=== PATIENT | female | born 1965 | race Caucasian/White ===

== ENCOUNTER 2019-04-10 11:34 | Inpatient (IN) ==
[2019-04-10] MEDS ORDERED: 0.9 % Sodium Chloride 1,000 ML IVC ONE (12:06)
[2019-04-10] MEDS ORDERED: Ondansetron 4 MG/2 ML VIAL IVP PRN (12:07)
[2019-04-10] MEDS ORDERED: *HR* FentaNYL (PF) 100 MCG/2 ML VIAL IVP ONE ×2 (12:07→13:56)
[2019-04-10] MEDS ORDERED: Isovue-370 500 ML BOTTLE IVP ONE (12:08)
[2019-04-10 12:35] LABS: Basophils % 0.3 %; Eosinophils # 0.2 K/mcL (0.0-0.6); Eosinophils % 1.5 %; Hematocrit 27.2 % (35.3-44.9); Immature Granulocytes % 0.6 % (0-4); Lymphocytes # 1.1 K/mcL (0.6-4.6); Lymphocytes % 7.9 %; Mean Corpuscular HGB Conc 29.4 g/dL (31.6-35.5); Mean Corpuscular Hemoglobin 21.4 pg (28.0-33.3); Mean Corpuscular Volume 72.9 fL (83.0-100.0); Mean Platelet Volume 8.4 fL (9.4-12.4); Monocytes # 1.5 K/mcL (0.0-1.3); Monocytes % 11.2 %; Neutrophils # 10.8 K/mcL (1.6-8.9); Platelet Count 540 K/mcL (140-400); Red Blood Count 3.73 M/mcL (3.82-4.97); Segmented Neutrophils % 78.5 %
[2019-04-10 12:42] LABS: INR 1.6; Prothrombin Time 18.1 Seconds (9.4-12.1)
[2019-04-10 12:53] LABS: Alanine Aminotransferase 14 Units/L (7-52); Albumin 2.6 g/dL (3.5-5.7); Albumin/Globulin Ratio 0.6 (1.1-2.2); Alkaline Phosphatase 227 Units/L (34-104); Aspartate Amino Transferase 12 Units/L (13-39); BUN/Creatinine Ratio 20 (6-26); Bilirubin,Total 0.4 mg/dL (0.3-1.0); Blood Urea Nitrogen 20 mg/dL (6-20); Calcium 8.4 mg/dL (8.6-10.3); Carbon Dioxide 25 mEq/L (23-29); Chloride 101 mEq/L (98-107); Globulin 4.7 g/dL (2.4-3.5); Glucose 118 mg/dL (70-105); Lipase 11 Units/L (11-82); Osmolality,Calculated 288 (280-300); Potassium 3.2 mEq/L (3.5-5.1); Sodium 137 mEq/L (136-145); Total Protein 7.3 g/dL (6.4-8.9); White Blood Count 13.7 K/mcL (4.3-11.1); eGFR For African Americans > 60 (> 60); eGFR For Non-African Americans 57 (> 60)
[2019-04-10 13:51] LABS: Bilirubin,Urine Small (Negative); Blood,Urine Large (Negative); Clarity,Urine Turbid (Clear); Color,Urine Yellow (Yellow); Glucose,Urine (UA) Normal (Normal); Ketones,Urine Negative (Negative); Leukocyte Esterase,Urine Large (Negative); Nitrite,Urine Negative (Negative); PH,Urine 5.5 pH Units (5.0-8.0); Protein,Urine 100 mg/dL (Neg-Trace); Specific Gravity,Urine 1.028 (1.010-1.025); Urobilinogen,Urine Normal (Normal)
[2019-04-10 13:56] LABS: Squamous Epithelial Cell,Urine Many per lpf (None-Few); WBC,Urine TNTC per hpf (0-3)
[2019-04-10 14:15] LABS: RBC,Urine 15-30 per hpf (0-3)
[2019-04-10 14:16] LABS: Bacteria,Urine Moderate per hpf (None-Few)
[2019-04-10] MEDS ORDERED: Piperacillin/Tazobactam 3.375 GM in 0.9 % Sodium Chloride Mini Bag 100 ML IVPB ONE (15:06)
[2019-04-10] MEDS ORDERED: *HR* OxyCODONE Immed Rel 5 MG TABLET PO PRN (16:09)
[2019-04-10] MEDS ORDERED: Naloxone 0.4 MG/ML INJ IVP PRN (16:09)
[2019-04-10] MEDS ORDERED: Morphine Sulfate 2 MG/ML SYRINGE IVP ONE (18:02)
[2019-04-10] MEDS: Nicotine 14 MG PATCH.TD24 TD SCH (18:17)
[2019-04-10] MEDS ORDERED: Ringers Solution, Lactated 1,000 ML IVC SCH (20:30)
[2019-04-10] MEDS: Nystatin SUSP 5 ML UD.LIQ PO SCH (21:00)
[2019-04-10] MEDS ORDERED: Acetaminophen IV 1,000 MG/100 ML INFUS..BTL IVPB ONE (22:51)
[2019-04-10] MEDS ORDERED: 0.9 % Sodium Chloride 500 ML IVC ONE (22:53)
[2019-04-11] MEDS: 0.9 % Sodium Chloride 1,000 ML IVC SCH ×3 (01:00→22:29)
[2019-04-11 06:58] LABS: INR 1.7
[2019-04-11 07:09] LABS: Hematocrit 24.1 % (35.3-44.9); Hemoglobin 7.4 g/dL (11.5-15.4); Mean Corpuscular HGB Conc 30.7 g/dL (31.6-35.5); Mean Corpuscular Hemoglobin 21.4 pg (28.0-33.3); Mean Corpuscular Volume 69.7 fL (83.0-100.0); Mean Platelet Volume 8.8 fL (9.4-12.4); Platelet Count 521 K/mcL (140-400); Red Blood Count 3.46 M/mcL (3.82-4.97); Red Cell Distribution Width 18.3 % (11.5-14.5)
[2019-04-11 07:21] LABS: White Blood Count 20.9 K/mcL (4.3-11.1)
[2019-04-11 07:36] LABS: BUN/Creatinine Ratio 19 (6-26); Blood Urea Nitrogen 18 mg/dL (6-20); Calcium 7.5 mg/dL (8.6-10.3); Carbon Dioxide 19 mEq/L (23-29); Chloride 104 mEq/L (98-107); Glucose 42 mg/dL (70-105); Magnesium 1.6 mg/dL (1.6-2.6); Osmolality,Calculated 289 (280-300); Potassium 3.2 mEq/L (3.5-5.1); Sodium 140 mEq/L (136-145); eGFR For African Americans > 60 (> 60); eGFR For Non-African Americans > 60 (> 60)
[2019-04-11 07:45] LABS: Albumin 2.1 g/dL (3.5-5.7); Albumin/Globulin Ratio 0.6 (1.1-2.2); Bilirubin,Direct 0.5 mg/dL (0.0-0.2); Bilirubin,Indirect 0.2 mg/dL (0.0-1.0); Bilirubin,Total 0.7 mg/dL (0.3-1.0); Globulin 3.8 g/dL (2.4-3.5); Total Protein 5.9 g/dL (6.4-8.9)
[2019-04-11 07:50] LABS: Folate 11.4 ng/mL (3.0-16.0)
[2019-04-11 08:10] LABS: Thyroid Stimulating Hormone 6.926 mcIU/mL (0.340-5.600)
[2019-04-11 08:13] LABS: Anisocytosis 1+ (Not Present); Lymphocytes # 0.6 K/mcL (0.6-4.6); Microcytosis Present (Not Present); Neutrophils # 18.6 K/mcL (1.6-8.9)
[2019-04-11 08:14] LABS: Hypochromasia Present (Not Present); Platelet Estimate Increased (Normal); Reactive Lymphocytes Present (Not Present)
[2019-04-11 08:17] LABS: Ferritin 291 ng/mL (10-120)
[2019-04-11 08:21] LABS: Iron < 10 mcg/dL (50-170); Transferrin 103 mg/dL (203-362)
[2019-04-11] MEDS: Nicotine 14 MG PATCH.TD24 TD SCH (08:21)
[2019-04-11] MEDS: *HR* HYDROmorphone 2 MG/ML SYRINGE IVP PRN ×2 (08:23→15:31)
[2019-04-11] MEDS: Piperacillin/Tazobactam 3.375 GM in 0.9 % Sodium Chloride Mini Bag 100 ML IVPB SCH ×3 (08:23→18:39)
[2019-04-11] MEDS ORDERED: 0.9 % Sodium Chloride 500 ML ONE (08:43)
[2019-04-11] MEDS ORDERED: *HR* Midazolam HCl 5 MG/5 ML VIAL IVP ONE (08:51)
[2019-04-11] MEDS ORDERED: *HR* FentaNYL (PF) 100 MCG/2 ML VIAL IVP ONE (08:51)
[2019-04-11] MEDS ORDERED: *HR* Midazolam HCl 2 MG/2 ML VIAL IVP ONE (09:30)
[2019-04-11 14:06] LABS: Hematocrit 29.8 % (35.3-44.9); Hemoglobin 8.5 g/dL (11.5-15.4)
[2019-04-11] MEDS: Nystatin SUSP 5 ML UD.LIQ PO SCH ×2 (15:30→19:25)
[2019-04-11] MEDS: Ondansetron 4 MG/2 ML VIAL IVP PRN (15:30)
[2019-04-12] MEDS: Piperacillin/Tazobactam 3.375 GM in 0.9 % Sodium Chloride Mini Bag 100 ML IVPB SCH ×4 (00:05→23:38)
[2019-04-12] MEDS: *HR* HYDROmorphone 2 MG/ML SYRINGE IVP PRN (00:06)
[2019-04-12 04:46] LABS: Basophils % 0.2 %; Eosinophils # 0.3 K/mcL (0.0-0.6); Eosinophils % 3.7 %; Hematocrit 22.4 % (35.3-44.9); Immature Granulocytes % 1.1 % (0-4); Lymphocytes # 0.9 K/mcL (0.6-4.6); Lymphocytes % 10.6 %; Mean Corpuscular HGB Conc 30.4 g/dL (31.6-35.5); Mean Corpuscular Hemoglobin 21.1 pg (28.0-33.3); Mean Corpuscular Volume 69.3 fL (83.0-100.0); Mean Platelet Volume 8.3 fL (9.4-12.4); Monocytes # 0.7 K/mcL (0.0-1.3); Monocytes % 8.4 %; Platelet Count 443 K/mcL (140-400); Red Blood Count 3.23 M/mcL (3.82-4.97); Red Cell Distribution Width 18.3 % (11.5-14.5)
[2019-04-12 04:59] LABS: Hemoglobin 6.8 g/dL (11.5-15.4); Neutrophils # 6.2 K/mcL (1.6-8.9); White Blood Count 8.1 K/mcL (4.3-11.1)
[2019-04-12 05:09] LABS: BUN/Creatinine Ratio 23 (6-26); Blood Urea Nitrogen 21 mg/dL (6-20); Calcium 7.1 mg/dL (8.6-10.3); Carbon Dioxide 20 mEq/L (23-29); Chloride 109 mEq/L (98-107); Glucose 99 mg/dL (70-105); Magnesium 1.8 mg/dL (1.6-2.6); Osmolality,Calculated 287 (280-300); Potassium 3.7 mEq/L (3.5-5.1); Sodium 137 mEq/L (136-145); eGFR For African Americans > 60 (> 60); eGFR For Non-African Americans > 60 (> 60)
[2019-04-12 05:47] LABS: Anisocytosis 1+ (Not Present); Microcytosis Present (Not Present); Platelet Estimate Normal (Normal)
[2019-04-12 05:48] LABS: Hypochromasia Present (Not Present)
[2019-04-12] MEDS ORDERED: Ringers Solution, Lactated 1,000 ML IVC ONE (08:17)
[2019-04-12] MEDS: 0.9 % Sodium Chloride 1,000 ML IVC SCH ×4 (08:39→17:33)
[2019-04-12] MEDS: Nicotine 14 MG PATCH.TD24 TD SCH (08:40)
[2019-04-12] MEDS: Nystatin SUSP 5 ML UD.LIQ PO SCH ×4 (08:42→21:03)
[2019-04-12] MEDS: Acetaminophen 325 MG TABLET PO PRN ×3 (08:45→23:39)
[2019-04-12 08:54] LABS: Basophils % 0.4 %; Eosinophils # 0.3 K/mcL (0.0-0.6); Eosinophils % 3.7 %; Hematocrit 22.3 % (35.3-44.9); Hemoglobin 6.7 g/dL (11.5-15.4); Immature Granulocytes % 1.1 % (0-4); Lymphocytes % 11.8 %; Mean Corpuscular Hemoglobin 21.5 pg (28.0-33.3); Mean Corpuscular Volume 71.7 fL (83.0-100.0); Mean Platelet Volume 8.6 fL (9.4-12.4); Monocytes # 0.8 K/mcL (0.0-1.3); Monocytes % 9.6 %; Neutrophils # 5.9 K/mcL (1.6-8.9); Platelet Count 412 K/mcL (140-400); Red Blood Count 3.11 M/mcL (3.82-4.97); Red Cell Distribution Width 18.3 % (11.5-14.5); Segmented Neutrophils % 73.4 %
[2019-04-12 09:53] LABS: Estimated Average Glucose 148 mg/dl
[2019-04-12] MEDS ORDERED: 0.9 % Sodium Chloride 250 ML IVC SCH (10:15)
[2019-04-12 15:57] LABS: Hematocrit 27.4 % (35.3-44.9)
[2019-04-12 15:59] LABS: Hemoglobin 8.4 g/dL (11.5-15.4)
[2019-04-13 04:56] LABS: Hematocrit 24.3 % (35.3-44.9); Hemoglobin 7.6 g/dL (11.5-15.4); Mean Corpuscular HGB Conc 31.3 g/dL (31.6-35.5); Mean Corpuscular Volume 70.2 fL (83.0-100.0); Mean Platelet Volume 8.8 fL (9.4-12.4); Nucleated Red Blood Cells 0.3 /100 WBC (0); Platelet Count 373 K/mcL (140-400); Red Blood Count 3.46 M/mcL (3.82-4.97); Red Cell Distribution Width 19.5 % (11.5-14.5); White Blood Count 6.8 K/mcL (4.3-11.1)
[2019-04-13 05:23] LABS: BUN/Creatinine Ratio 24 (6-26); Blood Urea Nitrogen 21 mg/dL (6-20); Calcium 7.4 mg/dL (8.6-10.3); Carbon Dioxide 19 mEq/L (23-29); Chloride 114 mEq/L (98-107); Glucose 103 mg/dL (70-105); Osmolality,Calculated 287 (280-300); Sodium 137 mEq/L (136-145); eGFR For African Americans > 60 (> 60); eGFR For Non-African Americans > 60 (> 60)
[2019-04-13] MEDS: 0.9 % Sodium Chloride 1,000 ML IVC SCH ×2 (05:28→17:02)
[2019-04-13 05:42] LABS: Eosinophils # 0.4 K/mcL (0.0-0.6); Lymphocytes # 1.6 K/mcL (0.6-4.6); Monocytes # 0.3 K/mcL (0.0-1.3); Neutrophils # 4.2 K/mcL (1.6-8.9)
[2019-04-13 05:43] LABS: Anisocytosis 1+ (Not Present); Hypochromasia Present (Not Present); Platelet Estimate Normal (Normal)
[2019-04-13 05:44] LABS: Microcytosis Present (Not Present)
[2019-04-13] MEDS: Nystatin SUSP 5 ML UD.LIQ PO SCH ×4 (09:01→21:51)
[2019-04-13] MEDS: Nicotine 14 MG PATCH.TD24 TD SCH (09:01)
[2019-04-13] MEDS: Piperacillin/Tazobactam 3.375 GM in 0.9 % Sodium Chloride Mini Bag 100 ML IVPB SCH ×2 (09:01→16:37)
[2019-04-13] MEDS: Ondansetron 4 MG/2 ML VIAL IVP PRN (10:39)
[2019-04-13 12:19] LABS: Hematocrit 25.2 % (35.3-44.9); Hemoglobin 7.8 g/dL (11.5-15.4)
[2019-04-13] MEDS ORDERED: *HR* OxyCODONE/APAP 5/325 TABLET PO PRN (15:14)
[2019-04-14] MEDS: Piperacillin/Tazobactam 3.375 GM in 0.9 % Sodium Chloride Mini Bag 100 ML IVPB SCH ×2 (00:02→08:27)
[2019-04-14] MEDS: Ondansetron 4 MG/2 ML VIAL IVP PRN (00:05)
[2019-04-14 04:56] LABS: Eosinophils # 0.2 K/mcL (0.0-0.6); Hematocrit 25.7 % (35.3-44.9); Hemoglobin 8.1 g/dL (11.5-15.4); Mean Corpuscular HGB Conc 31.5 g/dL (31.6-35.5); Mean Corpuscular Hemoglobin 22.3 pg (28.0-33.3); Mean Corpuscular Volume 70.8 fL (83.0-100.0); Mean Platelet Volume 8.7 fL (9.4-12.4); Nucleated Red Blood Cells 0.6 /100 WBC (0); Platelet Count 409 K/mcL (140-400); Red Blood Count 3.63 M/mcL (3.82-4.97); White Blood Count 8.7 K/mcL (4.3-11.1)
[2019-04-14 05:15] LABS: BUN/Creatinine Ratio 16 (6-26); Blood Urea Nitrogen 14 mg/dL (6-20); Calcium 7.2 mg/dL (8.6-10.3); Carbon Dioxide 22 mEq/L (23-29); Chloride 110 mEq/L (98-107); Glucose 98 mg/dL (70-105); Osmolality,Calculated 288 (280-300); Potassium 3.8 mEq/L (3.5-5.1); Sodium 139 mEq/L (136-145); eGFR For African Americans > 60 (> 60); eGFR For Non-African Americans > 60 (> 60)
[2019-04-14 05:39] LABS: Hypochromasia Present (Not Present); Lymphocytes # 2.1 K/mcL (0.6-4.6); Microcytosis Present (Not Present); Neutrophils # 5.9 K/mcL (1.6-8.9)
[2019-04-14 05:40] LABS: Anisocytosis 1+ (Not Present); Platelet Estimate Normal (Normal)
[2019-04-14] MEDS: Nystatin SUSP 5 ML UD.LIQ PO SCH (08:27)
[2019-04-14] MEDS: Nicotine 14 MG PATCH.TD24 TD SCH (08:27)
[2019-04-14] MEDS: 0.9 % Sodium Chloride 1,000 ML IVC SCH (08:31)
[2019-04-14 10:13] VITALS: BP 112/69
[2019-04-14] MEDS ORDERED: Aminoglycoside Consult 1 EACH MC ONE (13:16)
== END 2019-04-14 13:17 | disposition home or self-care (01) | DRG 463 ==
LOC: SUATTDRO → 3ANU 11:34 → EMEROOARM 11:34 → OBSVTOIN 17:58 → SUATTDRO 17:58 → 3ANU 18:47
PROVIDERS: ADMIT Pharmacist; ATTEND Internal Medicine

== ENCOUNTER 2019-04-17 19:52 | Inpatient (IN) ==
[2019-04-17 21:42] LABS: Basophils # 0.1 K/mcL (0.0-0.2); Basophils % 0.6 %; Eosinophils # 0.4 K/mcL (0.0-0.6); Eosinophils % 3.3 %; Hematocrit 29.8 % (35.3-44.9); Hemoglobin 9.1 g/dL (11.5-15.4); Immature Granulocytes % 4.7 % (0-4); Lymphocytes # 2.7 K/mcL (0.6-4.6); Lymphocytes % 20.9 %; Mean Corpuscular HGB Conc 30.5 g/dL (31.6-35.5); Mean Corpuscular Hemoglobin 22.8 pg (28.0-33.3); Mean Corpuscular Volume 74.7 fL (83.0-100.0); Mean Platelet Volume 9.6 fL (9.4-12.4); Monocytes # 0.9 K/mcL (0.0-1.3); Monocytes % 7.3 %; Neutrophils # 8.2 K/mcL (1.6-8.9); Platelet Count 408 K/mcL (140-400); Red Blood Count 3.99 M/mcL (3.82-4.97); Red Cell Distribution Width 23.4 % (11.5-14.5); Segmented Neutrophils % 63.2 %; White Blood Count 12.9 K/mcL (4.3-11.1)
[2019-04-17 22:01] LABS: BUN/Creatinine Ratio 13 (6-26); Blood Urea Nitrogen 9 mg/dL (6-20); Calcium 7.8 mg/dL (8.6-10.3); Carbon Dioxide 24 mEq/L (23-29); Chloride 103 mEq/L (98-107); Glucose 76 mg/dL (70-105); Osmolality,Calculated 275 (280-300); Potassium 4.3 mEq/L (3.5-5.1); Sodium 134 mEq/L (136-145); eGFR For African Americans > 60 (> 60); eGFR For Non-African Americans > 60 (> 60)
[2019-04-17 22:09] LABS: Anisocytosis 2+ (Not Present); Hypochromasia Present (Not Present); Microcytosis Present (Not Present); Platelet Estimate Normal (Normal)
[2019-04-17] MEDS ORDERED: Piperacillin/Tazobactam 3.375 GM in 0.9 % Sodium Chloride Mini Bag 100 ML IVPB STA (22:47)
[2019-04-18] MEDS ORDERED: Nicotine 2 MG GUM BC PRN (00:18)
[2019-04-18] MEDS ORDERED: Naloxone 0.4 MG/ML INJ IVP PRN (00:18)
[2019-04-18] MEDS ORDERED: Ringers Solution, Lactated 1,000 ML IVC SCH (00:30)
[2019-04-18 01:01] LABS: Bilirubin,Urine Negative (Negative); Blood,Urine Small (Negative); Clarity,Urine Cloudy (Clear); Color,Urine Yellow (Yellow); Glucose,Urine (UA) Normal (Normal); Ketones,Urine Negative (Negative); Leukocyte Esterase,Urine Large (Negative); Nitrite,Urine Negative (Negative); PH,Urine 7.5 pH Units (5.0-8.0); Protein,Urine Trace mg/dL (Neg-Trace); Specific Gravity,Urine 1.015 (1.010-1.025); Urobilinogen,Urine Normal (Normal)
[2019-04-18 01:03] LABS: Bacteria,Urine None Seen per hpf (None-Few); Hyaline Casts,Urine None Seen per lpf (None-Few); Squamous Epithelial Cell,Urine None Seen per lpf (None-Few); WBC,Urine TNTC per hpf (0-3)
[2019-04-18 01:04] LABS: Basophils # 0.1 K/mcL (0.0-0.2); Basophils % 0.6 %; Eosinophils # 0.4 K/mcL (0.0-0.6); Eosinophils % 3.6 %; Hematocrit 32.1 % (35.3-44.9); Hemoglobin 9.6 g/dL (11.5-15.4); Immature Granulocytes % 4.6 % (0-4); Immature Reticulocyte % 42.5 % (11.0-38.0); Lymphocytes # 2.3 K/mcL (0.6-4.6); Lymphocytes % 19.9 %; Mean Corpuscular HGB Conc 29.9 g/dL (31.6-35.5); Mean Corpuscular Hemoglobin 23.1 pg (28.0-33.3); Mean Corpuscular Volume 77.2 fL (83.0-100.0); Mean Platelet Volume 8.9 fL (9.4-12.4); Monocytes # 0.8 K/mcL (0.0-1.3); Monocytes % 7.2 %; Neutrophils # 7.4 K/mcL (1.6-8.9); Platelet Count 386 K/mcL (140-400); Red Blood Count 4.16 M/mcL (3.82-4.97); Red Cell Distribution Width 23.6 % (11.5-14.5); Retculocyte # 0.19 M/mcL (0.05-0.10); Reticulocyte % 4.5 % (1.6-2.8); Segmented Neutrophils % 64.1 %; White Blood Count 11.5 K/mcL (4.3-11.1)
[2019-04-18 01:18] LABS: Protein/Creatinine Ratio,Urine 1.1 mg/mg (0.00-0.20)
[2019-04-18 01:28] LABS: Alanine Aminotransferase 36 Units/L (7-52); Albumin 2.3 g/dL (3.5-5.7); Albumin/Globulin Ratio 0.6 (1.1-2.2); Alkaline Phosphatase 399 Units/L (34-104); Aspartate Amino Transferase 31 Units/L (13-39); BUN/Creatinine Ratio 13 (6-26); Bilirubin,Total 0.3 mg/dL (0.3-1.0); Blood Urea Nitrogen 9 mg/dL (6-20); Calcium 7.5 mg/dL (8.6-10.3); Carbon Dioxide 28 mEq/L (23-29); Chloride 100 mEq/L (98-107); Chol/HDL Ratio 9.1 (0-4.9); Cholesterol 136 mg/dL (< 200); Glucose 96 mg/dL (70-105); HDL Cholesterol 15 mg/dL (40-59); LDL Cholesterol,Calculated 76 mg/dL (0-99); Osmolality,Calculated 279 (280-300); Potassium 3.8 mEq/L (3.5-5.1); Sodium 135 mEq/L (136-145); Total Protein 6.3 g/dL (6.4-8.9); Triglycerides 223 mg/dL (< 150); eGFR For African Americans > 60 (> 60); eGFR For Non-African Americans > 60 (> 60)
[2019-04-18] MEDS: Nicotine 14 MG PATCH.TD24 TD SCH ×2 (01:29→08:30)
[2019-04-18 01:41] LABS: Thyroid Stimulating Hormone 35.063 mcIU/mL (0.340-5.600)
[2019-04-18 02:30] LABS: Anisocytosis 2+ (Not Present); Hypochromasia Present (Not Present); Microcytosis Present (Not Present); Platelet Estimate Normal (Normal); Poikilocytosis 1+ (Not Present); Polychromasia 1+ (Not Present)
[2019-04-18] MEDS: Ondansetron 4 MG/2 ML VIAL IVP PRN (09:17)
[2019-04-18 10:09] LABS: Estimated Average Glucose 140 mg/dl
[2019-04-18] MEDS: Piperacillin/Tazobactam 3.375 GM in 0.9 % Sodium Chloride Mini Bag 100 ML IVP SCH (13:28)
[2019-04-19 02:06] LABS: Basophils # 0.1 K/mcL (0.0-0.2); Basophils % 0.7 %; Eosinophils # 0.5 K/mcL (0.0-0.6); Eosinophils % 5.9 %; Hematocrit 30.5 % (35.3-44.9); Hemoglobin 9.2 g/dL (11.5-15.4); Lymphocytes # 2.1 K/mcL (0.6-4.6); Lymphocytes % 24.2 %; Mean Corpuscular HGB Conc 30.2 g/dL (31.6-35.5); Mean Corpuscular Hemoglobin 23.1 pg (28.0-33.3); Mean Corpuscular Volume 76.6 fL (83.0-100.0); Mean Platelet Volume 9.3 fL (9.4-12.4); Monocytes # 0.7 K/mcL (0.0-1.3); Monocytes % 7.7 %; Neutrophils # 5.1 K/mcL (1.6-8.9); Platelet Count 384 K/mcL (140-400); Red Blood Count 3.98 M/mcL (3.82-4.97); Red Cell Distribution Width 24.4 % (11.5-14.5); Segmented Neutrophils % 58.5 %; White Blood Count 8.7 K/mcL (4.3-11.1)
[2019-04-19 02:34] LABS: BUN/Creatinine Ratio 13 (6-26); Blood Urea Nitrogen 12 mg/dL (6-20); Calcium 7.7 mg/dL (8.6-10.3); Carbon Dioxide 27 mEq/L (23-29); Chloride 101 mEq/L (98-107); Glucose 110 mg/dL (70-105); Osmolality,Calculated 278 (280-300); Sodium 134 mEq/L (136-145); eGFR For African Americans > 60 (> 60); eGFR For Non-African Americans > 60 (> 60)
[2019-04-19 04:22] LABS: Anisocytosis 2+ (Not Present); Hypochromasia Present (Not Present); Macrocytosis Present (Not Present); Platelet Estimate Normal (Normal)
[2019-04-19 04:23] LABS: Polychromasia 1+ (Not Present)
[2019-04-19] MEDS: Ondansetron 4 MG/2 ML VIAL IVP PRN (08:51)
[2019-04-19] MEDS: Piperacillin/Tazobactam 3.375 GM in 0.9 % Sodium Chloride Mini Bag 100 ML IVP SCH ×2 (11:36)
[2019-04-19] MEDS: Nicotine 14 MG PATCH.TD24 TD SCH (11:36)
[2019-04-19] MEDS: *HR* Heparin 5,000 UNIT/ML VIAL SQ SCH (20:30)
[2019-04-20] MEDS: Piperacillin/Tazobactam 3.375 GM in 0.9 % Sodium Chloride Mini Bag 100 ML IVP SCH ×2 (00:07→19:53)
[2019-04-20 02:34] LABS: Basophils # 0.1 K/mcL (0.0-0.2); Basophils % 0.8 %; Eosinophils # 0.5 K/mcL (0.0-0.6); Eosinophils % 5.7 %; Hematocrit 29.4 % (35.3-44.9); Hemoglobin 9.1 g/dL (11.5-15.4); Immature Granulocytes % 1.2 % (0-4); Lymphocytes # 2.1 K/mcL (0.6-4.6); Lymphocytes % 23.4 %; Mean Corpuscular Hemoglobin 23.2 pg (28.0-33.3); Mean Platelet Volume 9.2 fL (9.4-12.4); Monocytes # 0.7 K/mcL (0.0-1.3); Monocytes % 8.3 %; Platelet Count 405 K/mcL (140-400); Red Blood Count 3.92 M/mcL (3.82-4.97); Red Cell Distribution Width 25.2 % (11.5-14.5); Segmented Neutrophils % 60.6 %; White Blood Count 8.8 K/mcL (4.3-11.1)
[2019-04-20 02:42] LABS: BUN/Creatinine Ratio 17 (6-26); Blood Urea Nitrogen 16 mg/dL (6-20); Calcium 7.8 mg/dL (8.6-10.3); Carbon Dioxide 26 mEq/L (23-29); Chloride 101 mEq/L (98-107); Glucose 115 mg/dL (70-105); Neutrophils # 5.3 K/mcL (1.6-8.9); Osmolality,Calculated 284 (280-300); Potassium 4.1 mEq/L (3.5-5.1); Sodium 136 mEq/L (136-145); eGFR For African Americans > 60 (> 60); eGFR For Non-African Americans > 60 (> 60)
[2019-04-20 04:19] LABS: Anisocytosis 3+ (Not Present); Hypochromasia Present (Not Present); Platelet Estimate Increased (Normal); Polychromasia 1+ (Not Present)
[2019-04-20] MEDS: *HR* Heparin 5,000 UNIT/ML VIAL SQ SCH ×2 (05:11→19:53)
[2019-04-20] MEDS ORDERED: Acetaminophen IV 1,000 MG/100 ML INFUS..BTL ONE (13:03)
[2019-04-20] MEDS ORDERED: Heparin 1,000 UNITS/500 mL 500 ML ONE (13:08)
[2019-04-20] MEDS ORDERED: *HR* FentaNYL (PF) 100 MCG/2 ML VIAL ONE ×3 (13:15→17:57)
[2019-04-20] MEDS ORDERED: Lidocaine -MPF 2% 2 ML VIAL ONE ×2 (13:15→14:01)
[2019-04-20] MEDS ORDERED: *HR* Midazolam HCl 2 MG/2 ML VIAL ONE ×2 (13:16→13:57)
[2019-04-20] MEDS ORDERED: *HR* PHENYLEPHRINE 1,000 MCG/10 ML SYRINGE IVP ONE ×2 (13:19→15:44)
[2019-04-20] MEDS ORDERED: *HR* Promethazine 25 MG/ML VIAL IVP PRN (13:41)
[2019-04-20] MEDS ORDERED: *HR* HYDROmorphone (PF) 1 MG/ML SYRINGE IVP PRN (13:41)
[2019-04-20] MEDS ORDERED: Ondansetron 4 MG/2 ML VIAL IVP ONE (13:41)
[2019-04-20] MEDS ORDERED: *HR* OxyCODONE Immed Rel 5 MG TABLET PO PRN (13:41)
[2019-04-20] MEDS ORDERED: Albuterol 2.5 MG/3 ML NEBULIZER IH PRN (13:41)
[2019-04-20] MEDS ORDERED: *HR* Propofol 200 MG/20 ML VIAL IVP ONE (13:58)
[2019-04-20] MEDS ORDERED: *HR* Rocuronium Bromide 50 MG/5 ML VIAL ONE ×2 (14:01→15:56)
[2019-04-20] MEDS ORDERED: Dexamethasone 4 MG/ML VIAL ONE (14:01)
[2019-04-20] MEDS ORDERED: Bupivacaine/EPI 1:200k 0.25%PF 10 ML VIAL INFILT ONE ×2 (14:27→15:33)
[2019-04-20] MEDS ORDERED: Piperacillin/Tazobactam 3.375 GM in 0.9 % Sodium Chloride Mini Bag 100 ML IVP SCH (16:00)
[2019-04-20] MEDS ORDERED: *HR* HYDROMORPHONE 2 MG/ML VIAL ONE (17:49)
[2019-04-20] MEDS ORDERED: Ondansetron 4 MG/2 ML VIAL IVP PRN (19:41)
[2019-04-20] MEDS ORDERED: Nicotine 2 MG GUM BC PRN (19:41)
[2019-04-20] MEDS ORDERED: Naloxone 0.4 MG/ML INJ IVP PRN (19:41)
[2019-04-20] MEDS ORDERED: *HR* FentaNYL (PF) 100 MCG/2 ML VIAL IVP PRN (19:41)
[2019-04-20] MEDS: Nicotine 14 MG PATCH.TD24 TD SCH (19:52)
[2019-04-20] MEDS: Piperacillin/Tazobactam 3.375 GM in 0.9 % Sodium Chloride Mini Bag 100 ML IVPB SCH (20:44)
[2019-04-21] MEDS: Acetaminophen IV 1,000 MG/100 ML INFUS..BTL IVPB SCH ×5 (00:11→23:18)
[2019-04-21] MEDS: Piperacillin/Tazobactam 3.375 GM in 0.9 % Sodium Chloride Mini Bag 100 ML IVPB SCH ×3 (05:31→20:57)
[2019-04-21 05:41] LABS: Basophils # 0.1 K/mcL (0.0-0.2); Basophils % 0.3 %; Hematocrit 31.1 % (35.3-44.9); Hemoglobin 9.5 g/dL (11.5-15.4); Immature Granulocytes % 0.8 % (0-4); Lymphocytes # 1.6 K/mcL (0.6-4.6); Lymphocytes % 8.3 %; Mean Corpuscular HGB Conc 30.5 g/dL (31.6-35.5); Mean Corpuscular Hemoglobin 24.2 pg (28.0-33.3); Mean Corpuscular Volume 79.3 fL (83.0-100.0); Monocytes # 1.1 K/mcL (0.0-1.3); Monocytes % 5.5 %; Neutrophils # 16.3 K/mcL (1.6-8.9); Platelet Count 400 K/mcL (140-400); Red Blood Count 3.92 M/mcL (3.82-4.97); Red Cell Distribution Width 25.7 % (11.5-14.5); Segmented Neutrophils % 85.1 %
[2019-04-21 05:47] LABS: White Blood Count 19.1 K/mcL (4.3-11.1)
[2019-04-21 06:07] LABS: BUN/Creatinine Ratio 21 (6-26); Blood Urea Nitrogen 15 mg/dL (6-20); Calcium 8.3 mg/dL (8.6-10.3); Carbon Dioxide 22 mEq/L (23-29); Chloride 101 mEq/L (98-107); Glucose 114 mg/dL (70-105); Osmolality,Calculated 274 (280-300); Potassium 4.5 mEq/L (3.5-5.1); Sodium 131 mEq/L (136-145); eGFR For African Americans > 60 (> 60); eGFR For Non-African Americans > 60 (> 60)
[2019-04-21 06:18] LABS: Anisocytosis 2+ (Not Present)
[2019-04-21 06:19] LABS: Hypochromasia Present (Not Present); Macrocytosis Present (Not Present)
[2019-04-21] MEDS: Nicotine 14 MG PATCH.TD24 TD SCH (08:56)
[2019-04-22] MEDS: Piperacillin/Tazobactam 3.375 GM in 0.9 % Sodium Chloride Mini Bag 100 ML IVPB SCH ×3 (05:25→20:48)
[2019-04-22] MEDS: Acetaminophen IV 1,000 MG/100 ML INFUS..BTL IVPB SCH ×4 (05:25→23:09)
[2019-04-22] MEDS: Nicotine 14 MG PATCH.TD24 TD SCH (07:50)
[2019-04-22 07:58] LABS: Basophils # 0.1 K/mcL (0.0-0.2); Basophils % 0.4 %; Eosinophils # 0.3 K/mcL (0.0-0.6); Eosinophils % 2.2 %; Hematocrit 29.1 % (35.3-44.9); Immature Granulocytes % 0.6 % (0-4); Lymphocytes # 1.6 K/mcL (0.6-4.6); Lymphocytes % 11.9 %; Mean Corpuscular HGB Conc 30.9 g/dL (31.6-35.5); Mean Corpuscular Hemoglobin 24.3 pg (28.0-33.3); Mean Corpuscular Volume 78.6 fL (83.0-100.0); Mean Platelet Volume 9.5 fL (9.4-12.4); Monocytes # 1.3 K/mcL (0.0-1.3); Monocytes % 9.8 %; Neutrophils # 10.1 K/mcL (1.6-8.9); Platelet Count 420 K/mcL (140-400); Red Cell Distribution Width 26.9 % (11.5-14.5); Segmented Neutrophils % 75.1 %; White Blood Count 13.4 K/mcL (4.3-11.1)
[2019-04-22 08:17] LABS: BUN/Creatinine Ratio 20 (6-26); Blood Urea Nitrogen 17 mg/dL (6-20); Calcium 8.1 mg/dL (8.6-10.3); Carbon Dioxide 23 mEq/L (23-29); Chloride 102 mEq/L (98-107); Glucose 111 mg/dL (70-105); Osmolality,Calculated 282 (280-300); Potassium 3.8 mEq/L (3.5-5.1); Sodium 135 mEq/L (136-145); eGFR For African Americans > 60 (> 60); eGFR For Non-African Americans > 60 (> 60)
[2019-04-22 08:56] LABS: Poikilocytosis 1+ (Not Present)
[2019-04-22 08:57] LABS: Anisocytosis 2+ (Not Present); Hypochromasia Present (Not Present); Polychromasia 1+ (Not Present)
[2019-04-23 04:10] LABS: Basophils # 0.1 K/mcL (0.0-0.2); Basophils % 0.7 %; Eosinophils # 0.7 K/mcL (0.0-0.6); Hematocrit 27.7 % (35.3-44.9); Hemoglobin 8.6 g/dL (11.5-15.4); Immature Granulocytes % 0.5 % (0-4); Lymphocytes % 21.1 %; Mean Corpuscular Volume 80.5 fL (83.0-100.0); Mean Platelet Volume 9.4 fL (9.4-12.4); Monocytes % 10.6 %; Neutrophils # 5.7 K/mcL (1.6-8.9); Platelet Count 422 K/mcL (140-400); Red Blood Count 3.44 M/mcL (3.82-4.97); Red Cell Distribution Width 27.4 % (11.5-14.5); Segmented Neutrophils % 60.1 %; White Blood Count 9.4 K/mcL (4.3-11.1)
[2019-04-23 04:35] LABS: BUN/Creatinine Ratio 22 (6-26); Blood Urea Nitrogen 17 mg/dL (6-20); Calcium 8.1 mg/dL (8.6-10.3); Carbon Dioxide 26 mEq/L (23-29); Chloride 102 mEq/L (98-107); Glucose 101 mg/dL (70-105); Osmolality,Calculated 280 (280-300); Sodium 134 mEq/L (136-145); eGFR For African Americans > 60 (> 60); eGFR For Non-African Americans > 60 (> 60)
[2019-04-23] MEDS: Piperacillin/Tazobactam 3.375 GM in 0.9 % Sodium Chloride Mini Bag 100 ML IVPB SCH ×3 (04:41→21:54)
[2019-04-23 04:52] LABS: Anisocytosis 2+ (Not Present); Platelet Estimate Normal (Normal)
[2019-04-23] MEDS: Acetaminophen IV 1,000 MG/100 ML INFUS..BTL IVPB SCH (05:45)
[2019-04-23] MEDS: Nicotine 14 MG PATCH.TD24 TD SCH (09:55)
[2019-04-23] MEDS: *HR* OxyCODONE/APAP 5/325 TABLET PO PRN ×3 (11:04→21:57)
[2019-04-24 04:25] LABS: Basophils # 0.1 K/mcL (0.0-0.2); Basophils % 1.5 %; Eosinophils # 0.6 K/mcL (0.0-0.6); Eosinophils % 6.9 %; Hemoglobin 9.1 g/dL (11.5-15.4); Immature Granulocytes % 0.4 % (0-4); Lymphocytes # 2.1 K/mcL (0.6-4.6); Lymphocytes % 25.8 %; Mean Corpuscular HGB Conc 31.4 g/dL (31.6-35.5); Mean Corpuscular Hemoglobin 25.1 pg (28.0-33.3); Mean Corpuscular Volume 80.1 fL (83.0-100.0); Mean Platelet Volume 9.5 fL (9.4-12.4); Monocytes # 0.8 K/mcL (0.0-1.3); Monocytes % 10.4 %; Neutrophils # 4.4 K/mcL (1.6-8.9); Platelet Count 477 K/mcL (140-400); Red Blood Count 3.62 M/mcL (3.82-4.97); Red Cell Distribution Width 27.3 % (11.5-14.5)
[2019-04-24 04:28] LABS: BUN/Creatinine Ratio 28 (6-26); Blood Urea Nitrogen 22 mg/dL (6-20); Calcium 8.5 mg/dL (8.6-10.3); Carbon Dioxide 22 mEq/L (23-29); Chloride 104 mEq/L (98-107); Glucose 103 mg/dL (70-105); Osmolality,Calculated 284 (280-300); Potassium 4.2 mEq/L (3.5-5.1); Sodium 135 mEq/L (136-145); eGFR For African Americans > 60 (> 60); eGFR For Non-African Americans > 60 (> 60)
[2019-04-24] MEDS: *HR* OxyCODONE/APAP 5/325 TABLET PO PRN (04:30)
[2019-04-24] MEDS: Piperacillin/Tazobactam 3.375 GM in 0.9 % Sodium Chloride Mini Bag 100 ML IVPB SCH (04:31)
[2019-04-24 05:13] LABS: Anisocytosis 1+ (Not Present); Poikilocytosis 1+ (Not Present)
[2019-04-24 05:14] LABS: Hypochromasia Present (Not Present); Macrocytosis Present (Not Present)
[2019-04-24] MEDS: Nicotine 14 MG PATCH.TD24 TD SCH (08:38)
[2019-04-24 11:06] VITALS: BP 118/63
[2019-04-24] MEDS ORDERED: Aminoglycoside Consult 1 EACH MC ONE (13:37)
== END 2019-04-24 13:38 | disposition home or self-care (01) | DRG 443 ==
LOC: 3ANU 19:52 → EMEROOARM 19:52 → SUATTDRO 23:45 → 3ANU 04-18 00:19
PROVIDERS: ADMIT Internal Medicine; ATTEND Family Medicine